=== PATIENT | male | born 1980 | race Caucasian/White ===

== ENCOUNTER → 2023-07-20 12:51 | Outpatient (REF) | payer OTHER, SELFPAY ==
[2023-07-20 15:38] LABS: ALT (SGPT) 54 U/L (0-50); AST (SGOT) 47 U/L (17-59); Albumin 4.9 g/dl (3.5-5.0); Alkaline Phosphatase 52 U/L (38-126); Blood Urea Nitrogen 16 mg/dl (9-20); Carbon Dioxide 27 mmol/L (22-30); Chloride 103 mmol/L (98-107); Glucose 78 mg/dl (70-99); HDL Cholesterol 57 mg/dl; LDL Cholesterol, Calculated 63 mg/dl; Potassium 4.3 mmol/L (3.5-5.1); Sodium 141 mmol/L (135-145); Total Cholesterol 137 mg/dl (50-199); Total Protein 7.3 g/dl (6.3-8.2); Triglyceride 89 mg/dl (10-149); Very Low Density Lipoprotein 17 mg/dl (0-30); eGFR > 60.00
== END ==
LOC: REG 12:51
PROVIDERS: ATTENDING PHYSICIAN Family Medicine
DX: M25.571 Pain in right ankle and joints of right foot (principal); E78.00 Pure hypercholesterolemia, unspecified
CPT/HCPCS: 36415; 73610; 80053; 80061

== ENCOUNTER 2023-11-20 10:37 | Outpatient (RCR) | payer OTHER, SELFPAY | END 2023-11-20 23:59 | disposition home or self-care (01) | LOC: RPT 10:37 | PROVIDERS: ATTENDING PHYSICIAN Student in an Organized Health Care Education/Training Program; FAMILY PHYSICIAN Family Medicine | DX: M25.571 Pain in right ankle and joints of right foot (principal); M76.821 Posterior tibial tendinitis, right leg; Z73.6 Limitation of activities due to disability | CPT/HCPCS: 97161 ==

== ENCOUNTER 2024-01-21 00:50 | Emergency (ER) | payer SELFPAY ==
--- NOTE | 2024-01-21 00:53 | ED.BBFEXPP ---
HPI- Blood/Body Fluid Exposure
General
Chief Complaint: Blood and Body Fluid Exposure
Source: patient
Exam Limitations: none
Time Seen by Provider: 01/21/24 00:52
Nursing documentation reviewed up to this point in time: agreed with
History of Present Illness
Is this injury a work related problem?: Yes
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
Body fluid exposure: by needle stick
Needle was: contaminated small needle (Suture needle)
Source of contamination is: unknown
Type of contamination: blood
Amount of contamination: small
Exposure deemed significant: Yes
Initial Comments:
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 Critically ill, elderly source patient taken emergently to the Assessment Coordinator, resuscitated and while suturing catheter in place with suture needle he inadvertently stuck his left index (2nd)
digit with suture needle.
This was a small solid needle. No gross bloody contamination.
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
He declines postexposure prophylaxis.
He is agreeable to baseline testing for HIV, hepatitis C, hepatitis B.
Past Medical History Pediatric
Past Medical History
Past Medical History Pediatric: asthma
Past Surgical History
Past Surgical History Pediatric: tonsilectomy and other (ASD repair at age 7)
Immunizations
Immunizations up to date: Yes
Family/Social History
Tobacco: Non-smoker
Alcohol: None
Pediatric Physical Exam
Physical Exam
Pediatric Physical Exam:
PHYSICAL EXAMINATION:
General: 43-year-old gentleman appears his stated age, bright and alert, pleasant, easily communicative and in no acute distress.
Neuro: alert and oriented. no focal neurological deficits
Psychiatric: well kept. interactive and cooperative
Musculoskeletal: [Minute puncture wound left distal index digit. No redness, no bleeding, no tenderness.]
Course
Orders/Labs/Results
Orders:
Orders
01/21/24 01:05
Pt has had a significant HIV exposure? Routine
HIV Exposure is significant?: Yes
HIV Combo Urgent
Hepatitis B Surface Antibody Urgent
Hepatitis B Surface Antigen Urgent
Hepatitis C Antibody Urgent
MDM/Problems Addressed
Differential Diagnosis Includes:
Needlestick injury through a gloved finger with solid, small suture needle. Although technically, potential for small amount of blood contamination it is reassuring that this was not a hollow bore needle.
He declines PEP
Up-to-date with Tdap as well as hepatitis B vaccination.
Will test source patient for HIV as well as hepatitis B, hepatitis A.
Patient agreeable to baseline testing.
Will plan for follow-up with occupational health as needed.
*Critical Care Note
Total Time (30-74mins, 75-104mins- exclusive of procedures): Not Applicable
ED Attending Note
-
Portions of this chart may have been created with voice recognition software.� Occasional wrong word or��sound alike� substitutions may have occurred due to the inherent limitations of voice recognition software.
Discharge Plan
Departure
Patient Disposition: Home (Routine Discharge)
Date of Disposition: 01/21/24
Time of Disposition: 01:06
Patient with high blood pressure during this ER visit?: No
Discharge Problem:
Needle stick injury of finger of left hand
Instructions: Blood or body fluid exposure
Prescriptions:
No Action
fluticasone propionate [Flovent HFA] 1 PUFF HFA aerosol inhaler
1 puff inhalation R BID
ibuprofen 200 MG tablet
400 - 800 mg PO BIDPRN PRN (Reason: mild to moderate pain)
albuterol sulfate 1 PUFF HFA aerosol inhaler
2 puff inhalation R Q4HPRN PRN (Reason: sob)
acetaminophen 325 MG tablet
650 mg PO Q4HPRN PRN (Reason: mild pain/VALDERRAMA/temp> 100.4F) 0RF
Referrals:
[facility] [Outside] - As needed
Stand Alone Forms: Bl/Fluid Consent/Declination, Blood Body/Fluid Exposure
Discharge Date and Time
Print Language: BENGALI
[2024-01-21 01:17] VITALS: BP 119/90
[2024-01-21 02:12] LABS: Hepatitis B Surface Antigen Negative (Negative)
[2024-01-21 02:19] LABS: HIV Combo Negative (Negative)
[2024-01-21 02:52] LABS: Hepatitis C Antibody Negative (Negative)
[2024-01-21 03:58] LABS: Hepatitis B Surface Antibody Indeterminate
== END 2024-01-21 01:15 | disposition home or self-care (01) ==
LOC: EMR 00:50
PROVIDERS: EMERGENCY PHYSICIAN Emergency Medicine; FAMILY PHYSICIAN Family Medicine
DX: S61.231A Puncture wound without foreign body of left index finger without damage to nail, initial encounter (principal); W46.0XXA Contact with hypodermic needle, initial encounter; Y99.0 Civilian activity done for income or pay; Z77.21 Contact with and (suspected) exposure to potentially hazardous body fluids; J45.909 Unspecified asthma, uncomplicated
CPT/HCPCS: 99283; 86706; 86803; 87340; 87389

== ENCOUNTER → 2024-06-18 09:00 | Outpatient (REF) | payer OTHER, BC, SELFPAY ==
[2024-06-18 18:42] LABS: Hepatitis B Surface Antigen Negative (Negative)
[2024-06-18 18:53] LABS: HIV Combo Negative (Negative)
[2024-06-18 18:59] LABS: Hepatitis B Surface Antibody Positive; Hepatitis C Antibody Negative (Negative)
== END ==
LOC: OHS 09:00
PROVIDERS: Nurse Practitioner Adult Health; ATTENDING PHYSICIAN Nurse Practitioner Adult Health
DX: T14.90XA Injury, unspecified, initial encounter (principal); W46.0XXA Contact with hypodermic needle, initial encounter; Z77.21 Contact with and (suspected) exposure to potentially hazardous body fluids
CPT/HCPCS: 86706; 86803; 87340; 87389

== ENCOUNTER → 2024-10-29 18:34 | Outpatient (REF) | payer OTHER, SELFPAY | LOC: RAD 18:34 | PROVIDERS: ATTENDING PHYSICIAN Family Medicine | DX: M25.562 Pain in left knee (principal) | CPT/HCPCS: 73564 ==

== ENCOUNTER → 2024-11-04 07:14 | Outpatient (REF) | payer OTHER, SELFPAY ==
[2024-11-04 07:59] LABS: Hematocrit 43.1 % (39.0-52.0); Hemoglobin 14.4 g/dL (13.0-18.0); Mean Corp Hgb Conc. 33.4 g/dL (33.0-37.0); Mean Corpuscular Volume 88.0 fL (80.0-94.0); Nucleated Red Blood Cells % 0 % (-); Platelet Count 233 10^3/uL (130-400); Red Cell Dist. Width 12.2 % (11.5-14.5)
[2024-11-04 08:56] LABS: ALT (SGPT) 60 U/L (0-50); AST (SGOT) 64 U/L (17-59); Albumin 4.6 g/dl (3.5-5.0); Alkaline Phosphatase 40 U/L (38-126); Blood Urea Nitrogen 20 mg/dl (9-20); Calcium 9.6 mg/dl (8.4-10.2); Carbon Dioxide 28 mmol/L (22-30); Chloride 105 mmol/L (98-107); Glucose 94 mg/dl (70-99); HDL Cholesterol 49 mg/dl; LDL Cholesterol, Calculated 65 mg/dl; Potassium 4.5 mmol/L (3.5-5.1); Sodium 140 mmol/L (135-145); Total Protein 6.9 g/dl (6.3-8.2); Very Low Density Lipoprotein 41 mg/dl (0-30); eGFR > 60.00
== END ==
LOC: REG 07:14
PROVIDERS: ATTENDING PHYSICIAN Family Medicine
DX: R53.83 Other fatigue (principal); Z13.29 Encounter for screening for other suspected endocrine disorder; Z13.1 Encounter for screening for diabetes mellitus; E78.2 Mixed hyperlipidemia
CPT/HCPCS: 36415; 80053; 80061; 84443; 85025

== ENCOUNTER → 2024-11-07 11:56 | Outpatient (REF) | payer OTHER, SELFPAY | LOC: PAVMRI 11:56 | PROVIDERS: ATTENDING PHYSICIAN Student in an Organized Health Care Education/Training Program; FAMILY PHYSICIAN Family Medicine | DX: S83.249A Other tear of medial meniscus, current injury, unspecified knee, initial encounter (principal) | CPT/HCPCS: 73721 ==

== ENCOUNTER → 2024-11-15 22:00 | Outpatient (REF) | payer BC, SELFPAY | LOC: DHSLP 22:00 | PROVIDERS: ATTENDING PHYSICIAN Family Medicine | DX: G47.33 Obstructive sleep apnea (adult) (pediatric) (principal) | CPT/HCPCS: 95806 ==

== ENCOUNTER 2024-11-24 06:07 | Day surgery (SDC) | payer OTHER, SELFPAY ==
[2024-11-24] VITALS (9 sets, daily range): BP systolic 100–122; BP diastolic 58–75; BMI 31.6
[2024-11-24] MEDS: TYLENOL 1000 MG PO (12:15)
[2024-11-24] MEDS: NORMOSOL-R/PLASMALYTE-A 1000 IV (12:15)
--- NOTE | 2024-11-24 15:20 | W.IMMPOSTOP ---
Surgical Immed Post Op Note
-
Primary Surgeon: Hermelindo Brian MD
Assisting Surgeon:
Pre-op Diagnosis: left knee medial meniscal tear
Post-op Diagnosis: left knee medial meniscal tear
Procedure Performed: arthroscopic left knee partial medial meniscectomy
Anesthesia Type: general with regional
Specimen / Cultures: none
Estimated Blood Loss: 1mL
Complications: none apparent
Operative Findings: grade 2 chondrosis of patella; stable medial posterior root tear
Tourniquet time: 31 minutes
Operative dictation #: [id number]
== END 2024-11-24 17:18 | disposition home or self-care (01) ==
LOC: SDS 06:07
PROVIDERS: ATTENDING PHYSICIAN Student in an Organized Health Care Education/Training Program
DX: S83.242A Other tear of medial meniscus, current injury, left knee, initial encounter (principal); X58.XXXA Exposure to other specified factors, initial encounter
CPT/HCPCS: 29881

== ENCOUNTER → 2024-12-30 13:26 | Outpatient (REF) | payer OTHER, SELFPAY ==
[2024-12-30 14:15] LABS: Hematocrit 46.8 % (39.0-52.0); Hemoglobin 15.2 g/dL (13.0-18.0); Mean Corp Hgb Conc. 32.5 g/dL (33.0-37.0); Mean Corpuscular Volume 90.0 fL (80.0-94.0); Nucleated Red Blood Cells % 0 % (-); Platelet Count 265 10^3/uL (130-400); Red Cell Dist. Width 12.3 % (11.5-14.5)
[2024-12-30 14:40] LABS: ALT (SGPT) 39 U/L (0-50); AST (SGOT) 27 U/L (17-59); Albumin 4.8 g/dl (3.5-5.0); Alkaline Phosphatase 49 U/L (38-126); Blood Urea Nitrogen 14 mg/dl (9-20); Calcium 9.7 mg/dl (8.4-10.2); Carbon Dioxide 29 mmol/L (22-30); Chloride 103 mmol/L (98-107); GGTP 25 U/L (15-73); Glucose 98 mg/dl (70-99); Potassium 4.3 mmol/L (3.5-5.1); Sodium 139 mmol/L (135-145); Total Protein 7.2 g/dl (6.3-8.2); eGFR > 60.00
== END ==
LOC: REG 13:26
PROVIDERS: ATTENDING PHYSICIAN Family Medicine
DX: R53.83 Other fatigue (principal); R79.89 Other specified abnormal findings of blood chemistry
CPT/HCPCS: 36415; 80053; 82977; 85025

== ENCOUNTER → 2025-01-16 08:05 | Outpatient (REF) | payer OTHER, SELFPAY | LOC: RAD 08:05 | PROVIDERS: ATTENDING PHYSICIAN Family Medicine | DX: R79.89 Other specified abnormal findings of blood chemistry (principal) | CPT/HCPCS: 76700 ==